=== PATIENT | male | born 1960 | race Caucasian/White ===

== ENCOUNTER 2025-07-07 01:36 | Inpatient (IN) | payer BC, MEDICARE ==
[2025-07-07] MEDS ORDERED: Calcium Carbonate 500 MG ChewTAB PO PRN (02:25)
[2025-07-07] MEDS ORDERED: Ondansetron PF 4 MG/2 ML Vial IVP PRN (02:25)
[2025-07-07] MEDS ORDERED: Electrolyte Replacement Protocol 1 EACH FS SCH (02:30)
[2025-07-07 02:31] LABS: #Basophils 0.06 10x3/uL (0.0-0.2); #Eosinophils 0.35 10x3/uL (0.0-0.7); #Monocytes 0.74 10x3/uL (0.11-0.59); #Neutrophils 6.24 10x3/uL (1.40-6.50); %Basophils 0.7 % (0.0-1.0); %Eosinophils 4.1 % (0.0-10.0); %Lymphocytes 12.2 % (21.0-51.0); %Monocytes 8.8 % (0.0-10.0); %Neutrophils 73.8 % (42.0-75.0); Hematocrit 39.8 % (42.0-52.0); Hemoglobin 13.2 g/dL (14.0-18.0); Mean Corpuscular Hemoglobin 29.7 pg (27.0-31.0); Mean Corpuscular Volume 89.6 fL (78.0-98.0); Platelet Count 260 10x3/uL (130-400); Red Blood Cell (RBC) Count 4.44 mill/uL (4.70-6.10); White Blood Cell (WBC) Count 8.45 10x3/uL (4.8-10.8)
[2025-07-07 02:52] LABS: ALT (SGPT) 29 U/L (Less than 45); AST (SGOT) 30 U/L (11-34); Albumin 3.1 g/dL (3.1-4.5); Alkaline Phosphatase 104 U/L (40-110); Anion Gap 14 mmol/L (10-20); BUN (Urea Nitrogen) 15 mg/dL (8.4-25.7); Bilirubin, Total 0.7 mg/dL (0.3-1.2); Calc. Creatinine Clearance 0 mL/min (70-130); Calcium 8.5 mg/dL (7.8-10.44); Carbon Dioxide 22 mmol/L (23-31); Chloride 106 mmol/L (98-107); Globulin 2.9 g/dL (2.4-3.5); Glucose 94 mg/dL (80-115); Potassium 3.4 mmol/L (3.5-5.1); Sodium 139 mmol/L (136-145)
[2025-07-07 03:30] LABS: INR-International Normal Ratio 1.1; Prothrombin Time 14.1 sec (12.0-14.7)
[2025-07-07 03:31] LABS: PTT 35.4 sec (22.9-36.1)
[2025-07-07 04:21] VITALS: BMI 25.7
[2025-07-07] MEDS: Guaifenesin DM 100-10/5 ML UDCUP PO PRN (04:49)
[2025-07-07] MEDS ORDERED: fentaNYL PF 100 MCG/2 ML SYRINGE ONE (09:21)
[2025-07-07] MEDS ORDERED: PROPOFOL 20 ML ONE (09:21)
[2025-07-07] MEDS ORDERED: Rocuronium Bromide 10 MG/ML (10ML VIAL) ONE (09:23)
[2025-07-07] MEDS ORDERED: Lidocaine 1% PF 5 ML VIAL ONE (09:23)
[2025-07-07] MEDS ORDERED: Ondansetron PF 4 MG/2 ML Vial ONE (09:23)
[2025-07-07] MEDS: Lisinopril 20 MG TAB PO SCH (09:24)
[2025-07-07] MEDS: Carvedilol 6.25 MG TAB PO SCH (09:24)
[2025-07-07] MEDS ORDERED: Bupivacaine 0.25% HCL 30 ML VIAL ONE (09:26)
[2025-07-07] MEDS: Potassium Chloride 20 MEQ in Premix 1 BAG IVPB SCH (10:03)
[2025-07-07] MEDS ORDERED: Lidocaine 2% 6 ML (Jelly) SYR ONE (10:10)
[2025-07-07] MEDS ORDERED: PHENYLEPHRINE-NS 100 MCG/ML 10 ML SYRINGE ONE ×2 (10:19→11:24)
[2025-07-07] MEDS ORDERED: SUGAMMADEX SODIUM 200 MG/2 ML VIAL ONE (12:07)
[2025-07-07] MEDS ORDERED: HYDROmorphone 0.5 MG/0.5 ML SYRINGE ONE (12:41)
[2025-07-07] MEDS ORDERED: HYDROmorphone 0.5 MG/0.5 ML SYR SLOW IVP PRN (13:15)
[2025-07-07 15:05] LABS: Potassium 4.0 mmol/L (3.5-5.1)
[2025-07-07] MEDS ORDERED: hydrALAZINE 20 MG/ML VIAL SLOW IVP PRN (21:51)
[2025-07-07] MEDS ORDERED: HYDROcodone/Acetaminophen 5/325 mg Tablet PO PRN ×2 (21:51)
[2025-07-07] MEDS ORDERED: Cyclobenzaprine 10 MG TAB PO PRN (21:51)
[2025-07-07 22:39] LABS: #Basophils Less than 0.03 10x3/uL (0.0-0.2); #Eosinophils Less than 0.03 10x3/uL (0.0-0.7); #Monocytes 0.86 10x3/uL (0.11-0.59); #Neutrophils 11.98 10x3/uL (1.40-6.50); %Basophils 0.1 % (0.0-1.0); %Eosinophils 0.0 % (0.0-10.0); %Lymphocytes 3.8 % (21.0-51.0); %Monocytes 6.3 % (0.0-10.0); %Neutrophils 88.4 % (42.0-75.0); Hematocrit 36.9 % (42.0-52.0); Hemoglobin 11.9 g/dL (14.0-18.0); Mean Corpuscular Hemoglobin 29.5 pg (27.0-31.0); Mean Corpuscular Volume 91.3 fL (78.0-98.0); Platelet Count 261 10x3/uL (130-400); Red Blood Cell (RBC) Count 4.04 mill/uL (4.70-6.10); White Blood Cell (WBC) Count 13.55 10x3/uL (4.8-10.8)
[2025-07-07 23:09] LABS: Anion Gap 12 mmol/L (10-20); BUN (Urea Nitrogen) 11 mg/dL (8.4-25.7); Calc. Creatinine Clearance 140 mL/min (70-130); Calcium 8.4 mg/dL (7.8-10.44); Carbon Dioxide 22 mmol/L (23-31); Chloride 105 mmol/L (98-107); Glucose 155 mg/dL (80-115); Potassium 4.2 mmol/L (3.5-5.1); Sodium 135 mmol/L (136-145)
[2025-07-07] MEDS: Ketorolac Tromethamine 30 MG (1 mL) VIAL IVP SCH (23:57)
[2025-07-08 00:05] LABS: #Basophils Less than 0.03 10x3/uL (0.0-0.2); #Eosinophils Less than 0.03 10x3/uL (0.0-0.7); #Monocytes 0.93 10x3/uL (0.11-0.59); #Neutrophils 11.78 10x3/uL (1.40-6.50); %Basophils 0.1 % (0.0-1.0); %Eosinophils 0.0 % (0.0-10.0); %Lymphocytes 4.8 % (21.0-51.0); %Monocytes 6.9 % (0.0-10.0); %Neutrophils 87.8 % (42.0-75.0); Hematocrit 36.2 % (42.0-52.0); Hemoglobin 12.0 g/dL (14.0-18.0); Mean Corpuscular Hemoglobin 30.3 pg (27.0-31.0); Mean Corpuscular Volume 91.4 fL (78.0-98.0); Platelet Count 253 10x3/uL (130-400); Red Blood Cell (RBC) Count 3.96 mill/uL (4.70-6.10); White Blood Cell (WBC) Count 13.42 10x3/uL (4.8-10.8)
[2025-07-08 00:19] LABS: INR-International Normal Ratio 1.2; Prothrombin Time 15.0 sec (12.0-14.7)
[2025-07-08 00:20] LABS: PTT 31.7 sec (22.9-36.1)
[2025-07-08 00:24] LABS: Anion Gap 12 mmol/L (10-20); BUN (Urea Nitrogen) 12 mg/dL (8.4-25.7); Calc. Creatinine Clearance 147 mL/min (70-130); Calcium 8.5 mg/dL (7.8-10.44); Carbon Dioxide 22 mmol/L (23-31); Chloride 105 mmol/L (98-107); Glucose 142 mg/dL (80-115); Potassium 4.2 mmol/L (3.5-5.1); Sodium 135 mmol/L (136-145)
[2025-07-08] MEDS: Heparin 5,000 UNITS/ML VIAL SC SCH ×2 (02:35→09:12)
[2025-07-08 04:01] LABS: #Basophils Less than 0.03 10x3/uL (0.0-0.2); #Eosinophils Less than 0.03 10x3/uL (0.0-0.7); #Monocytes 1.04 10x3/uL (0.11-0.59); #Neutrophils 10.81 10x3/uL (1.40-6.50); %Basophils 0.2 % (0.0-1.0); %Eosinophils 0.1 % (0.0-10.0); %Lymphocytes 6.4 % (21.0-51.0); %Monocytes 8.1 % (0.0-10.0); %Neutrophils 84.7 % (42.0-75.0); Hematocrit 34.6 % (42.0-52.0); Hemoglobin 11.5 g/dL (14.0-18.0); Mean Corpuscular Hemoglobin 30.0 pg (27.0-31.0); Mean Corpuscular Volume 90.3 fL (78.0-98.0); Platelet Count 253 10x3/uL (130-400); Red Blood Cell (RBC) Count 3.83 mill/uL (4.70-6.10); White Blood Cell (WBC) Count 12.77 10x3/uL (4.8-10.8)
[2025-07-08 04:21] LABS: Anion Gap 10 mmol/L (10-20); BUN (Urea Nitrogen) 13 mg/dL (8.4-25.7); Calc. Creatinine Clearance 121 mL/min (70-130); Calcium 8.4 mg/dL (7.8-10.44); Carbon Dioxide 27 mmol/L (23-31); Chloride 105 mmol/L (98-107); Glucose 125 mg/dL (80-115); Potassium 4.1 mmol/L (3.5-5.1); Sodium 138 mmol/L (136-145)
[2025-07-08] MEDS: Acetaminophen 325 MG TAB PO PRN (09:45)
[2025-07-08] MEDS: Gabapentin 300 MG CAP PO SCH ×2 (10:25)
[2025-07-09 04:09] LABS: #Basophils 0.07 10x3/uL (0.0-0.2); #Eosinophils 0.49 10x3/uL (0.0-0.7); #Monocytes 0.74 10x3/uL (0.11-0.59); #Neutrophils 6.86 10x3/uL (1.40-6.50); %Basophils 0.8 % (0.0-1.0); %Eosinophils 5.3 % (0.0-10.0); %Lymphocytes 10.3 % (21.0-51.0); %Monocytes 8.1 % (0.0-10.0); %Neutrophils 74.8 % (42.0-75.0); Hematocrit 32.1 % (42.0-52.0); Hemoglobin 10.5 g/dL (14.0-18.0); Mean Corpuscular Hemoglobin 29.9 pg (27.0-31.0); Mean Corpuscular Volume 91.5 fL (78.0-98.0); Platelet Count 233 10x3/uL (130-400); Red Blood Cell (RBC) Count 3.51 mill/uL (4.70-6.10); White Blood Cell (WBC) Count 9.16 10x3/uL (4.8-10.8)
[2025-07-09] MEDS: Transdermal Patch Removal TOP SCH (04:50)
[2025-07-09] MEDS: BuPROPion XL 150 MG ER.TAB PO SCH (09:00)
[2025-07-09] MEDS: Ezetimibe 10 MG TAB PO SCH (09:01)
[2025-07-09] MEDS: Lisinopril 20 MG TAB PO SCH (09:02)
[2025-07-09] MEDS: Pantoprazole 40 MG DR.TAB PO SCH (09:02)
[2025-07-09] MEDS: Aspirin 81 mg Enteric Coated Tablet PO SCH (11:31)
[2025-07-09] MEDS: Carvedilol 6.25 MG TAB PO SCH (16:35)
[2025-07-10] MEDS: Aspirin 81 mg Enteric Coated Tablet PO SCH (08:55)
[2025-07-10 18:22] VITALS: BP 122/81; TEMP 98.4
[2025-07-11] MEDS ORDERED: CO Q-10 CAPSULE 100 MG PO SCH (09:00)
== END 2025-07-10 20:15 | disposition home or self-care (01) | DRG 163 ==
LOC: ERS 01:36 → IMCU/EMU 02:25 → PCU 20:31
PROVIDERS: ADMIT Student in an Organized Health Care Education/Training Program; ATTEND Family Medicine
PROC: 0BNJ8ZZ Release Left Lower Lung Lobe, Via Natural or Artificial Opening Endoscopic (ICD-10-PCS; principal; 2025-07-07)
PROC: 0BN Respiratory System, Release (ICD-10-PCS; 2025-07-07)
PROC: 8E0W4CZ Robotic Assisted Procedure of Trunk Region, Percutaneous Endoscopic Approach (ICD-10-PCS; 2025-07-07)
PROC: 3E033XZ Introduction of Vasopressor into Peripheral Vein, Percutaneous Approach (ICD-10-PCS; 2025-07-07)
PROC: 3E03329 Introduction of Other Anti-infective into Peripheral Vein, Percutaneous Approach (ICD-10-PCS; 2025-07-08)
DX: J90 Pleural effusion, not elsewhere classified (principal); J18.9 Pneumonia, unspecified organism; R09.02 Hypoxemia; I10 Essential (primary) hypertension; I25.10 Atherosclerotic heart disease of native coronary artery without angina pectoris; E87.6 Hypokalemia; E78.5 Hyperlipidemia, unspecified; F41.9 Anxiety disorder, unspecified; F32.A Depression, unspecified; Z95.1 Presence of aortocoronary bypass graft; Z90.49 Acquired absence of other specified parts of digestive tract; Z98.890 Other specified postprocedural states; Z79.82 Long term (current) use of aspirin; Z79.899 Other long term (current) drug therapy
CPT/HCPCS: 36415; 36416; 71045; 80048; 80053; 83986; 85025; 85610; 85730; 86850; 86900; 86901; 87070; 87205; 88112; 88305; 93005; J0169; J0665; J0692; J1100; J1171; J1644; J1885; J2270; J2405; J2704; J3010; S2900

== ENCOUNTER 2025-07-24 11:43 | Outpatient (CLI) | payer BC | END 2025-07-24 11:44 | disposition home or self-care (01) | LOC: RAD 11:43 | PROVIDERS: ATTEND Student in an Organized Health Care Education/Training Program | DX: J90 Pleural effusion, not elsewhere classified (principal) | CPT/HCPCS: 71046 ==